=== PATIENT | male | born 1980 | race African-American/Black ===

== ENCOUNTER 2017-09-19 14:10 | Emergency (ER) | payer OTHER ==
[~2017-09-19] VITALS: Ht 182.9 cm; Wt 86.2 kg
[2017-09-19 14:18] VITALS: BP 122/77
== END 2017-09-19 14:33 | disposition home or self-care (01) ==
LOC: ER 14:15
DX: H66.92 Otitis media, unspecified, left ear (principal); Z60.2 Problems related to living alone
CPT/HCPCS: A4606; Z7610

== ENCOUNTER 2017-10-24 01:22 | Emergency (ER) | payer OTHER ==
[~2017-10-24] VITALS: Ht 182.9 cm; Wt 97.5 kg
[2017-10-24 01:45] VITALS: BP 145/73
== END 2017-10-24 02:35 | disposition home or self-care (01) ==
LOC: ER 01:23
DX: H66.92 Otitis media, unspecified, left ear (principal); Z60.2 Problems related to living alone
CPT/HCPCS: A4606; Z7610